=== PATIENT | male | born 1945 | race Caucasian/White ===

== ENCOUNTER 2021-03-13 07:03 | Day surgery (SDC) | payer MEDICARE, OTHER ==
--- NOTE | 2021-03-06 15:32 | PCM.SN.2 ---
- Free Text/Narrative Note: 03/06/2021: Patient contacted via phone call regarding recommended Stress Test by Dr. Marsh. Over 30 minutes was utilized in educating patient of the benefits of having the stress test prior to surgery. Patient agrees to have stress test done as long as surgery for Left Total knee is not delayed. Hina Pollard informed of patient's compliance to have stress test done. Arrangements being performed to accommodate patient's needs. Thank you! Fidelia PORRAS
[~2021-03-13 07:03] MED LIST: Lactated Ringers 1,000 ML IV SCH; Lidocaine 1%/Sod Bicarbonate in NS 8.4% 1 ML Syringe IDERM PRN; Morphine 8 MG, EPINEPHrine 0.3 MG, Cefuroxime 750 MG, Ketorolac 30 MG, Sodium Chloride ... PRN; Sodium Chloride 0.9% 10 ML Syringe FLUSH PRN; Sodium Chloride 0.9% 10 ML Syringe FLUSH SCH
--- NOTE | 2021-03-13 07:11 | PCM.PREANE ---
Preanesthetic Assessment - Procedure Proposed Procedure: Left total knee arthroplasty with right knee steroid injection - Anesthesia/Transfusion/Family Hx Anesthesia History: Prior Anesthesia Without Reaction Family History of Anesthesia Reaction: No Transfusion History: No Prior Transfusion(s) Intubation History: Unknown - Review of Systems General: No Symptoms Pulmonary: No Symptoms Cardiovascular: No Symptoms Gastrointestinal: No Symptoms Neurological: No Symptoms Other: Reports: None - Physical Assessment NPO Status Date: 03/12/21 NPO Status Time: 18:00 Vital Signs: 160/95 HR 81 97.1 RR 16 97% Height: 1.83 m Weight: 86 kg ASA Class: 3 Mental Status: Alert & Oriented x3 Airway Class: Mallampati = 2 Dentition: Reports: [place](s), Caries Thyro-Mental Finger Breadths: 3 Mouth Opening Finger Breadths: 3 ROM/Head Extension: Full Lungs: Clear to Auscultation, Normal Respiratory Effort Cardiovascular: Regular Rate, Regular Rhythm, Murmurs - Lab Values: Labs reviewed and okay to proceed - Imaging/EKG Impressions: Chest x-ray results on paper chart, see chart EKG NSR HR 68 ECHO mild aortic and mitral regurg and boarderline pulmonary artery pressures - Allergies Allergies/Adverse Reactions: Allergies Allergy/AdvReac Type Severity Reaction Status Date / Time MANSOOR Inhibitors Allergy Cough Verified 03/12/21 13:58 - Anesthesia Plan Beta Tiffany: Carvedilol Med Last Dose Date: 03/13/21 Med Last Dose Time: 05:30 - Acknowledgements Anesthesia Type Planned: General Anesthesia, Spinal Pt an Appropriate Candidate for the Planned Anesthesia: Yes Alternatives and Risks of Anesthesia Discussed w Pt/Guardian: Yes Pt/Guardian Understands and Agrees with Anesthesia Plan: Yes PreAnesthesia Questionnaire HEENT History: Reports: Impaired Vision, Other (See Below) Other HEENT History: MACULAR PUCKER, TONGUE PAIN AND IRRITATION, TORUS MANDIBULARIS, VASOMOTOR RHINITIS Cardiovascular History: Reports: Heart Murmur, High Cholesterol, Hypertension, Other (See Below) Other Cardiovascular History: PVCS, ATHEROSCLEROSIS Respiratory History: Reports: Other (See Below) Other Respiratory History: COUGH Gastrointestinal History: Reports: GERD, Helicobacter Pylori, Hiatal Hernia, Other (See Below) Other Gastrointestinal History: LIVER CYST, H PYLORI, GLOBUS PHARYNGITIS Genitourinary History: Reports: Other (See Below) Other Genitourinary History: NOCTURIA, FREQUENCY, ERECTILE DYSFUNCTION MEDICAL SCREENER History: Reports: None Musculoskeletal History: Reports: Osteoarthritis, Other (See Below) Other Musculoskeletal History: MYALGIA, LEFT KNEE PAIN, RIGHT RIB PAIN Neurological History: Reports: Other (See Below) Other Neuro History: PARESTHESIA Psychiatric History: Reports: None Endocrine/Metabolic History: Reports: Osteopenia, Vitamin D Deficiency Hematologic History: Reports: None Immunologic History: Reports: None Oncologic (Cancer) History: Reports: Other (See Below) (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) Dermatologic History: Reports: Other (See Below) Other Dermatologic History: ONCHOMYCOSIS, SEBORRHEIC KERATOSIS, HAIR LOSS, COLD SORES - Infectious Disease History Infectious Disease History: Reports: None - Past Surgical History Head Surgeries/Procedures: Reports: None HEENT Surgical History: Reports: None Cardiovascular Surgical History: Reports: None Respiratory Surgical History: Reports: None GI Surgical History: Reports: Colonoscopy, EGD Female Surgical History: Reports: None Male Surgical History: Reports: None Endocrine Surgical History: Reports: None Neurological Surgical History: Reports: None Musculoskeletal Surgical History: Reports: Other (See Below) (index finger surgery) Oncologic Surgical History: Reports: None Dermatological Surgical History: Reports: None - SUBSTANCE USE Tobacco Use Status *Q: Former Tobacco User (quit 1989) Tobacco Use Within Last Twelve Months: No Second Hand Smoke Exposure: No Days Per Week of Alcohol Use: 7 Number of Drinks Per Day: 1 Total Drinks Per Week: 7 Recreational Drug Use History: No - HOME MEDS Home Medications: Home Meds Aspirin [Aspirin EC] 325 mg PO BID #60 tab 03/10/21 [Rx] Famotidine 20 mg PO BID #60 tab 03/10/21 [Rx] oxyCODONE 5 - 10 mg PO Q4H PRN #40 tab 03/10/21 [Rx] Amitriptyline [Elavil] 25 mg PO BEDTIME 03/12/21 [History] L.acidoph,Paracasei, B.lactis [Probiotic] 1 cap PO DAILY 03/12/21 [History] Multivitamin 1 tab PO DAILY 03/12/21 [History] Omeprazole Magnesium [Prilosec Otc] 20 mg PO DAILY 03/12/21 [History] Sildenafil Citrate [Viagra] 100 mg PO ASDIRECTED PRN 03/12/21 [History] Triamterene/Hydrochlorothiazid [Triamterene-HCTZ 37.5-25 MG] 1 dose PO DAILY 03/12/21 [History] Turmeric Root Extract [Turmeric Curcumin] 500 mg PO DAILY 03/12/21 [History] Valsartan 160 mg PO DAILY 03/12/21 [History] amLODIPine [Norvasc] 5 mg PO DAILY 03/12/21 [History] atorvaSTATin Calcium [Lipitor] 5 mg PO DAILY 03/12/21 [History] carvediloL [Coreg] 25 mg PO DAILY 03/12/21 [History] - CURRENT (IN HOUSE) MEDS Current Meds: Current Medications Acetaminophen (Acetaminophen 325 Mg Tab) 975 mg PO ONETIME RAFIA Stop: 03/13/21 12:01 Morphine Sulfate 8 mg/Epinephrine HCl 0.3 mg/Cefuroxime Sodium 750 mg/Ketorolac Tromethamine 30 mg/Sodium Chloride 7.9 ml 0 mg .XX ASDIRECTED PRN PRN Reason: Pain Stop: 03/13/21 15:00 Lactated Ringer's (Ringers, Lactated) 1,000 mls @ 125 mls/hr IV ASDIRECTED RAFIA Stop: 03/13/21 23:00 Lidocaine/Sodium Bicarbonate (Lidocaine 1%/Sod Bicarbonate In Ns 8.4% 1 Ml Syringe) 0.25 ml IDERM ONETIME PRN PRN Reason: Prior to IV Start Stop: 03/13/21 23:00 Oxycodone HCl (Oxycodone Er 10 Mg Tab.Er) 10 mg PO ONETIME RAFIA Stop: 03/13/21 12:01 Pregabalin (Pregabalin 25 Mg Cap) 50 mg PO ONETIME RAFIA Stop: 03/13/21 12:01 Sodium Chloride (Sodium Chloride 0.9% 10 Ml Syringe) 10 ml FLUSH 0900,2100 RAFIA Stop: 03/13/21 23:00 Discontinued Medications Morphine Sulfate 8 mg/Epinephrine HCl 0.3 mg/Cefuroxime Sodium 750 mg/Ketorolac Tromethamine 30 mg/Sodium Chloride 7.9 ml 0 mg .XX ASDIRECTED PRN PRN Reason: Pain Stop: 02/02/21 18:00 Lactated Ringer's (Ringers, Lactated) 1,000 mls @ 125 mls/hr IV ASDIRECTED RAFIA Stop: 02/02/21 23:00 Lidocaine/Sodium Bicarbonate (Lidocaine 1%/Sod Bicarbonate In Ns 8.4% 1 Ml Syringe) 0.25 ml IDERM ONETIME PRN PRN Reason: Prior to IV Start Stop: 02/02/21 18:00 Sodium Chloride (Sodium Chloride 0.9% 10 Ml Syringe) 10 ml FLUSH ASDIRECTED PRN PRN Reason: Keep Vein Open Stop: 02/02/21 18:00
[2021-03-13] MEDS: Acetaminophen 325 MG Tab PO SCH ×2 (07:22→07:24)
[2021-03-13] MEDS: oxyCODONE ER 10 MG TAB.ER PO SCH ×2 (07:22→07:24)
[2021-03-13] MEDS: Pregabalin 25 MG Cap PO SCH ×2 (07:22→07:25)
[2021-03-13] MEDS ORDERED: Vancomycin 1 GM SDV ONE (08:03)
[2021-03-13] MEDS ORDERED: Midazolam 1 MG/ML 2 ML SDV ONE (08:06)
[2021-03-13] MEDS ORDERED: fentaNYL 100 MCG/2 ML SDV ONE (08:06)
[2021-03-13] MEDS ORDERED: Propofol 200 MG/20 ML SDV ONE (08:06)
[2021-03-13] MEDS ORDERED: ceFAZolin 1 GM Vial ONE (08:11)
[2021-03-13] MEDS ORDERED: EPINEPHrine 1 MG/ML SDV ONE (08:14)
[2021-03-13] MEDS ORDERED: Ropivacaine 0.5% 5 MG/ML 30 ML SDV ONE (08:15)
[2021-03-13] MEDS ORDERED: HYDROmorphone 0.5 MG/0.5 ML Syringe IVPUSH PRN (08:58)
[2021-03-13] MEDS ORDERED: Ondansetron 4 MG/2 ML SDV IVPUSH PRN (08:58)
[2021-03-13] MEDS ORDERED: fentaNYL 100 MCG/2 ML SDV IVPUSH PRN (08:58)
[2021-03-13] MEDS ORDERED: ePHEDrine 50 MG/ML SDV ONE (09:11)
[2021-03-13] MEDS: Vancomycin 1 GM SDV ONE ×2 (09:50→10:06)
[2021-03-13] MEDS: Triamcinolone Acetonide 40 MG/ML 1 ML SDV ONE ×2 (09:52→10:24)
[2021-03-13] MEDS: Bupivacaine 0.25% 10 ML SDV ONE ×2 (09:52→10:24)
[2021-03-13] MEDS ORDERED: Lactated Ringers 1,000 ML ONE (10:12)
--- NOTE | 2021-03-13 10:35 | PCM.POSTAN ---
POST ANESTHESIA ASSESSMENT - MENTAL STATUS Mental Status: Alert, Oriented - VITAL SIGNS Vital Signs: Last Vital Signs Temp 97.0 F 03/13/21 07:24 Pulse 81 03/13/21 07:00 Resp 16 03/13/21 07:00 BP 160/95 H 03/13/21 07:00 Pulse Ox 97 03/13/21 07:00 1028 94% 115/69 79 11 98.3 - RESPIRATORY Respiratory Status: Respiratory Rate WNL, Airway Patent, O2 Saturation Stable, Supplemental Oxygen - CARDIOVASCULAR CV Status: Pulse Rate WNL, Blood Pressure Stable - GASTROINTESTINAL GI Status: No Symptoms - PAIN Pain Score: 0 - POST OP HYDRATION Hydration Status: Adequate & Stable
--- NOTE | 2021-03-13 10:52 | PCM.SN.2 ---
- Free Text/Narrative Note: Left selective femoral nerve block at the adductor canal for post-procedure pain control under US guidance requested by Dr. Diamond. Date: 03/13/21 Time Out: 1041 Start: 104 End: 1045 Chart reviewed. Consent signed. Questions answered. Appropriate monitors applied. Time out performed. Left mid-shaft femur identified with ultrasound, scanning medially of femur, the femoral artery in the adductor canal visualized, and the femoral nerve located laterally to the artery. The skin was prepped lateral to the ultrasound probe with chlorahexadine times two. The 20 ga 4 insulated block needle was inserted under direct ultrasound guidance into the adductor canal. 25mL of 0.5% ropivacaine with 1:200,000 epinephrine was injected circumferentially around the nerve with intermittent negative aspiration noted. Patient tolerated the procedure well. Sterile technique noted along with sterile gloves, mask, and sterile probe cover. See picture on progress note and vital signs on nurses notes. Block completed in PACU. No printer on the trial ultrasound machine. Cristiane Hood CRNA
--- NOTE | 2021-03-13 11:18 | CR ---
Left knee: AP and crosstable lateral views of the left knee were obtained. Comparison: Prior left knee CT study of 01/18/21. Knee prosthesis is noted. Patellar prosthesis is seen. Components are aligned. Underlying bony structures show nothing acute. Soft tissue air is noted from the surgical procedure. Slight vascular calcification is noted. Impression: 1. Satisfactory postoperative radiographic appearance of recently placed left knee prostheses. Diagnostic code #2
[2021-03-13] MEDS ORDERED: oxyCODONE 5 MG Tab PO PRN (11:33)
[2021-03-13] MEDS ORDERED: Albuterol 0.083% 2.5 MG/3 ML Neb Soln NEB ONE (14:50)
--- NOTE | 2021-03-13 15:50 | PCM48HPAN ---
Post Anesthesia Note - EVALUATION WITHIN 48HRS OF ANESTHETIC Vital Signs in Normal Range: Yes Patient Participated in Evaluation: Yes Respiratory Function Stable: Yes Airway Patent: Yes Cardiovascular Function Stable: Yes Hydration Status Stable: Yes Pain Control Satisfactory: Yes Nausea and Vomiting Control Satisfactory: Yes Mental Status Recovered: Yes Vital Signs: Last Vital Signs Temp 97.2 F 03/13/21 14:50 Pulse 91 03/13/21 15:30 Resp 14 03/13/21 15:30 BP 113/78 03/13/21 15:30 Pulse Ox 95 03/13/21 15:30 - COMMENTS/OBSERVATIONS Free Text/Narrative:: Encouraging IS, coughing, and deep breathing, in the process of weaning patient to RA (currently on 1 liter). Fadia Shine, QA ARCHITECT
[2021-03-13] MEDS ORDERED: Albuterol 0.083% 2.5 MG/3 ML Neb Soln NEB SCH (16:00)
--- NOTE | 2021-04-02 21:34 | PCM.OPNOTE ---
- General Post-Op/Procedure Note Date of Surgery/Procedure: 03/13/21 Operative Procedure(s): left total knee arthroplasty with right knee corticosteroid injection Pre Op Diagnosis: bilateral knee osteoarthrosis Post-Op Diagnosis: Same Anesthesia Technique: Local, MAC, Spinal Primary Surgeon: Adelfo Diamond Anesthesia Provider: Cristiane Hood Manager Enterprise: Diana Pollard Manager Enterprise: Vanessa Hayes EBNeri in mLs: 5 Complications: None Condition: Good Free Text/Narrative:: 08/28 9mm 35x10
--- NOTE | 2021-04-02 22:22 | OR ---
DATE OF OPERATION: 03/13/2021 SURGEON: Adelfo Diamond MD OPERATION PERFORMED: Left total knee arthroplasty with right knee corticosteroid injection. PREOPERATIVE DIAGNOSIS: Bilateral knee osteoarthrosis. POSTOPERATIVE DIAGNOSIS: Bilateral knee osteoarthrosis. ANESTHESIA: Local MAC with spinal. ANESTHESIA PROVIDER: Cristiane Hood CRNA ASSISTANTS: Diana Pollard PA-C and Vanessa Hayes LPN. ESTIMATED BLOOD LOSS: 5 mL. COMPLICATIONS: None. CONDITION: Stable. IMPLANT: 1. Kaushik size 6 cemented PS femur. 2. Hodgen size 6 cemented [place] tibial baseplate. 3. Kaushik size 6 9 mm PS X3 polyethylene. 4. Kaushik size 35 x 10 mm cemented asymmetric patella. DESCRIPTION OF PROCEDURE: The patient was identified in the preop holding area. Proper site was marked and identified by the surgeon. The patient was taken back to the operating theater where after adequate anesthesia, the patient's left lower extremity had a nonsterile tourniquet applied and it was sterilely prepped and draped in the usual sterile fashion. OR time-out was performed. The patient received 2 g IV Ancef. Leg arambula was then applied to the left lower extremity. At this time, the left lower extremity was exsanguinated. Tourniquet was insufflated to 250 mmHg . Standard anterior incision was made. Medial parapatellar arthrotomy was created. Deep fibers of the MCL were raised as well as anterior fat pad was resected. Attention was turned to the patella. Patella measured 25 mm; it was resected to 14 mm for 35 x 10 mm patella. Drill holes were then drilled. Attention was then turned to the femur. Two 4.0 pins were placed intra- incisionally for the Hodgen Reynaldo robotic array and then 2 more were placed on the tibia 3 fingerbreadths below the tibial tubercle. The Kaushik Reynaldo robotic arrays were placed on both the femur and the tibia then at this time as well as checkpoints on the femur and tibia. Hip center rotation was then obtained. The medial and lateral malleoli were marked. At this time, 40 points were obtained off the femur and the tibia for the Hodgen Reynaldo robotic plan. The patient's knee was brought to full extension. Varus and valgus stresses were applied and then into 90 degrees of flexion with a curved osteotome. Varus and valgus stresses were applied. At this time, [employer] robotic plan was done to 20 mm gaps in both flexion and extension. Hodgen Reynaldo robotic arm was then brought in. A straight saw blade was then used for the tibial cut, the anterior femoral cut, the anterior chamfer cut, and the posterior femoral cut. All bony fragments were removed. Saw blade was then switched out and the distal femoral cut as well as the posterior chamfer cut was completed. At this time, medial and lateral menisci were resected as well as any posterior osteophytes. A size 6 mm trial tibia was then placed, size 6 mm trial femur was placed, and a size 6 9 mm PS X3 polyethylene trial liner was placed. The patient's knee was brought to full extension and flexion. Varus and valgus stresses were applied, was found to be stable with no instability. No signs of liftoff or loosening were noted. At this time, box cut was completed on the femur. The pins were removed from the femur and the tibia as well as the arrays and the checkpoints. Cement was mixed on the back table. All cut surfaces were irrigated with pulse lavage irrigation with Ancef and then completely dried. Once the cement was ready, the Hodgen size 6 mm cemented [place] tibial base plate having been previously stamped and drilled, was then cemented in place on the tibia. The Kaushik size 6 mm cemented femur was cemented into place. The patient had a Hodgen size 6 9 mm PS X3 polyethylene insert placed. The patient's knee was brought to full extension. Excess cement was removed. A Kaushik size 35 x 10 mm cemented asymmetric patella was then cemented into place. 1 L of pulse lavage irrigation with Ancef was irrigated through the knee along with 400 mL of Irrisept irrigation. Periarticular injection was completed. Topical tranexamic acid and vancomycin powder were applied. A #2 barbed suture was used for closure of the medial parapatellar arthrotomy in flexion. 2-0 Vicryl and Stratafix were used for subcutaneous closure. Prineo was used for cutaneous closure. The patient had a sterile soft dressing applied. The tibial holes were closed with nylon, and this was also covered with a sterile soft dressing. The patient had an MANSOOR wrap applied and was sent to PACU in stable condition. The patient tolerated the procedure well. After this was completed, under sterile technique 2 mL of 40 mg Kenalog and 4 mL of 0.25% Marcaine were injected to the right knee. The patient tolerated all procedures well. KRISTOPHER /[id number]
== END 2021-03-13 16:35 | disposition home or self-care (01) ==
LOC: JD.SDS 07:03
PROVIDERS: ATTEND Orthopaedic Surgery
DX: M17.0 Bilateral primary osteoarthritis of knee (principal); E55.9 Vitamin D deficiency, unspecified; M27.0 Developmental disorders of jaws; I10 Essential (primary) hypertension; E78.00 Pure hypercholesterolemia, unspecified; K21.9 Gastro-esophageal reflux disease without esophagitis; E78.5 Hyperlipidemia, unspecified; Z98.890 Other specified postprocedural states; Z88.8 Allergy status to other drugs, medicaments and biological substances; Z79.899 Other long term (current) drug therapy; Z87.891 Personal history of nicotine dependence
CPT/HCPCS: 20610; 27447; 73560; 97110; 97116; 97161; A9270; C1713; C1776; J0171; J0690; J0697; J1885; J2250; J2270; J2370; J2405; J2704; J2795; J3010; J3301; J3370; J3490; J7120; 01402; 64450; 76942; 99100